=== PATIENT | male | born 1990 | race Two or more races ===

== ENCOUNTER 2018-02-08 02:46 | Emergency (ER) | payer MEDICAID ==
[~2018-02-08] VITALS: Ht 188 cm; Wt 97.5 kg
[2018-02-08 02:50] VITALS: BP 145/73
== END 2018-02-08 04:53 | disposition left against medical advice (07) ==
LOC: ER 02:48
DX: Z53.21 Procedure and treatment not carried out due to patient leaving prior to being seen by health care provider (principal)
CPT/HCPCS: A4606; Z7610